=== PATIENT | female | born 1980 | race Caucasian/White ===

== ENCOUNTER 2024-05-05 19:52 | Inpatient (IN) | payer OTHER, MEDICAID ==
[~2024-05-05] VITALS: Ht 154.9 cm; Wt 67.2 kg
[2024-05-05 20:04] VITALS: BP 150/100
[2024-05-05 21:44] LABS: BASO # 0.1 10*3/uL (0.0-0.1); BASO % 0.9 % (0.0-1.0); EOS # 0.2 10*3/uL (0.0-0.4); EOS % 3.8 % (1.0-4.0); HEMATOCRIT 35.5 % (37.0-47.0); LYMPH # 1.5 10*3/uL (1.3-4.4); LYMPH % 25.7 % (27.0-41.0); MEAN CELL VOLUME 88.8 fl (81.0-99.0); MEAN CORPUSCULAR HGB CONC 32.7 g/dl (33.0-37.0); MEAN PLATELET VOLUME 8.5 fl (9.6-12.3); MONO # 0.5 10*3/uL (0.1-1.0); MONO % 8.1 % (3.0-9.0); NEUT # 3.5 10*3/uL (2.3-7.9); NEUT % 60.6 % (47.0-73.0); PLATELET COUNT AUTOMATED 337 10*3/uL (130-400); RED CELL DISTRI WIDTH 16.5 % (0-14.5); WHITE BLOOD COUNT 5.8 10*3/uL (4.8-10.8)
[2024-05-05 21:53] LABS: BILIRUBIN Negative (Negative); BLOOD 1+ (Negative); CLARITY Clear (Clear); COLOR Yellow (Yellow); GLUCOSE Trace (Negative); KETONE Negative (Negative); LEUKO ESTERASE Negative (Negative); NITRITE Negative (Negative); UROBILINOGEN 0.2 E.U./dl (0.0-1.0)
[2024-05-05 22:04] LABS: POTASSIUM 4.1 mmol/L (3.4-5.1)
[2024-05-05 22:10] LABS: BACTERIA 1+; FINE GRANULAR CAST 0-2; WBC 0-2 wbc/hpf (0-5)
[2024-05-05 22:21] LABS: URINE AMPHETAMINES Negative (1000ng/ml); URINE BARBITURATES Negative (200ng/ml); URINE BENZODIAZEPINES Negative (200ng/ml); URINE CANNABINOIDS (THC) Negative (50ng/ml); URINE COCAINE Positive (300ng/ml); URINE METHADONE Negative (300ng/ml); URINE OPIATES Negative (300ng/ml); URINE PHENCYCLIDINE Negative (25ng/ml)
[2024-05-05] MEDS ORDERED: LORazepam 2 MG/ML VIAL IV ONE (22:40)
[2024-05-05] MEDS ORDERED: QUETIAPINE FUM100 M2 PO (23:02)
[2024-05-05] MEDS ORDERED: ASPIRIN ADULT L81 M1 PO (23:03)
[2024-05-05] MEDS ORDERED: ARTHRITIS PAIN50 GM TP (23:04)
[2024-05-05] MEDS ORDERED: FAMOTIDINE40 MG PO (23:05)
[2024-05-05] MEDS ORDERED: FERROUS SULFAT324 M2 PO (23:05)
[2024-05-05] MEDS ORDERED: NEURONTIN400 MG PO (23:06)
[2024-05-05] MEDS ORDERED: LAMICTAL100 MG PO (23:07)
[2024-05-05] MEDS ORDERED: MUCINEX ER600 MG PO (23:07)
[2024-05-05] MEDS ORDERED: LAMICTAL25 MG PO (23:08)
[2024-05-05] MEDS ORDERED: KEPPRA250 MG PO (23:08)
[2024-05-05] MEDS ORDERED: LEVOXYL100 MCG PO (23:09)
[2024-05-05] MEDS ORDERED: MELATONIN3 MG PO (23:10)
[2024-05-05] MEDS ORDERED: PROBIOTIC250 MG PO (23:12)
[2024-05-05] MEDS ORDERED: PLAVIX75 M1 PO (23:12)
[2024-05-05] MEDS ORDERED: SENNA8.6 MG PO (23:13)
[2024-05-05] MEDS ORDERED: SILVADENE,SSD C50 GM T (23:14)
[2024-05-05] MEDS ORDERED: SODIUM CHLORIDE 0.9% 1,000 ML IV ONE (23:35)
[2024-05-06 00:33] VITALS: BP 164/97
[2024-05-06] MEDS ORDERED: BISACODYL 10 MG SUPP R PRN (01:50)
[2024-05-06] MEDS ORDERED: ACETAMINOPHEN 650 MG SUPP R PRN (01:50)
[2024-05-06] MEDS ORDERED: BISACODYL 5 MG TAB PO PRN (01:50)
[2024-05-06] MEDS ORDERED: Magnesium Hydroxide 30 ML UDC PO PRN (01:50)
[2024-05-06] MEDS ORDERED: ACETAMINOPHEN 325 MG TAB PO PRN (01:50)
[2024-05-06] MEDS ORDERED: Albuterol Sulf/Ipratropium 3 ML VIAL NEB PRN (02:30)
[2024-05-06] MEDS ORDERED: hydrOXYzine pamoate 25 MG CAP PO ONE (03:00)
[2024-05-06] MEDS ORDERED: METOPROLOL SUCC25 M2 PO (03:05)
[2024-05-06] MEDS ORDERED: QUETIAPINE FUMARATE 100 MG TAB PO SCH (03:05)
[2024-05-06] MEDS ORDERED: HYDROXYZINE HYD50 MG PO (03:05)
[2024-05-06] MEDS ORDERED: PRISTIQ ER25 MG PO (03:08)
[2024-05-06 04:24] VITALS: BP 145/88
[2024-05-06] MEDS ORDERED: Ondansetron Hydrochloride 4 MG TAB PO PRN (06:30)
[2024-05-06 07:00] LABS: BASO % 0.7 % (0.0-1.0); EOS # 0.3 10*3/uL (0.0-0.4); EOS % 4.4 % (1.0-4.0); HEMATOCRIT 29.7 % (37.0-47.0); LYMPH # 1.9 10*3/uL (1.3-4.4); LYMPH % 30.2 % (27.0-41.0); MEAN CELL VOLUME 88.4 fl (81.0-99.0); MEAN CORPUSCULAR HGB 28.6 pg (27.0-31.0); MEAN CORPUSCULAR HGB CONC 32.3 g/dl (33.0-37.0); MEAN PLATELET VOLUME 8.5 fl (9.6-12.3); MONO # 0.6 10*3/uL (0.1-1.0); MONO % 10.4 % (3.0-9.0); NEUT # 3.3 10*3/uL (2.3-7.9); NEUT % 53.5 % (47.0-73.0); PLATELET COUNT AUTOMATED 271 10*3/uL (130-400); RED BLOOD COUNT 3.36 10*6/uL (4.10-5.10); RED CELL DISTRI WIDTH 16.3 % (0-14.5); WHITE BLOOD COUNT 6.1 10*3/uL (4.8-10.8)
[2024-05-06 07:25] LABS: FREE T4 0.92 ng/dl (0.89-1.76); POTASSIUM 4.1 mmol/L (3.4-5.1); TOTAL PROTEIN 5.8 gm/dL (6.0-8.0)
[2024-05-06] MEDS ORDERED: DEXTROSE 10 % IN WATER 250 ML IV PRN (07:25)
[2024-05-06] MEDS ORDERED: INSULIN LISPRO 1 UNIT/0.01 ML SQ SCH (07:30)
[2024-05-06 08:00] VITALS: BP 146/77
[2024-05-06] MEDS ORDERED: Levothyroxine Sodium 100 MCG TAB PO SCH (10:00)
[2024-05-06] MEDS ORDERED: Enoxaparin Sodium 40 MG/0.4 ML SYR SC SCH (10:00)
[2024-05-06] MEDS ORDERED: Clopidogrel Hydrogen Sulfate 75 MG TAB PO SCH (10:00)
[2024-05-06] MEDS ORDERED: ASPIRIN, CHEWABLE 81 MG TAB PO SCH (10:00)
[2024-05-06] MEDS ORDERED: LEVETIRACETAM 250 MG TAB PO SCH (10:00)
[2024-05-06] MEDS ORDERED: METOPROLOL SUCCINATE XR 25 MG TAB PO SCH (10:00)
[2024-05-06] MEDS ORDERED: Desvenlafaxine Succinate 50 MG TER PO SCH (10:00)
[2024-05-06] MEDS ORDERED: GABAPENTIN 400 MG CAP PO SCH (10:00)
[2024-05-06 12:00] VITALS: BP 126/72
[2024-05-06] MEDS ORDERED: MUPIROCIN 15 GM TUBE T SCH (14:00)
[2024-05-06] MEDS ORDERED: LORazepam 1 MG TAB PO SCH (14:00)
[2024-05-06 16:38] VITALS: BP 113/71
[2024-05-06 20:07] VITALS: BP 126/78
[2024-05-06] MEDS ORDERED: LAMOTRIGINE 25 MG TAB PO SCH (22:00)
[2024-05-06] MEDS ORDERED: FAMOTIDINE 20 MG TAB PO SCH (22:00)
[2024-05-07] VITALS (7 sets, daily range): BP systolic 111–159; BP diastolic 67–90
[2024-05-07 07:12] LABS: BASO # 0.1 10*3/uL (0.0-0.1); BASO % 0.8 % (0.0-1.0); EOS # 0.4 10*3/uL (0.0-0.4); EOS % 6.5 % (1.0-4.0); HEMATOCRIT 32.7 % (37.0-47.0); LYMPH # 2.1 10*3/uL (1.3-4.4); LYMPH % 32.9 % (27.0-41.0); MEAN CELL VOLUME 90.6 fl (81.0-99.0); MEAN CORPUSCULAR HGB 28.8 pg (27.0-31.0); MEAN CORPUSCULAR HGB CONC 31.8 g/dl (33.0-37.0); MEAN PLATELET VOLUME 8.4 fl (9.6-12.3); MONO # 0.7 10*3/uL (0.1-1.0); MONO % 10.8 % (3.0-9.0); NEUT # 3.1 10*3/uL (2.3-7.9); NEUT % 48.5 % (47.0-73.0); PLATELET COUNT AUTOMATED 292 10*3/uL (130-400); RED BLOOD COUNT 3.61 10*6/uL (4.10-5.10); RED CELL DISTRI WIDTH 16.4 % (0-14.5); WHITE BLOOD COUNT 6.3 10*3/uL (4.8-10.8)
[2024-05-07 07:43] LABS: POTASSIUM 4.6 mmol/L (3.4-5.1)
[2024-05-07] MEDS ORDERED: Vitamin D 1,000 IU TAB (25 MCG) PO SCH (10:00)
[2024-05-07] MEDS ORDERED: SODIUM CHLORIDE 0.9% 1,000 ML IV ONE (12:30)
[2024-05-07] MEDS ORDERED: LORazepam 1 MG TAB PO SCH (16:00)
[2024-05-07] MEDS ORDERED: GABAPENTIN 400 MG CAP PO SCH (22:00)
[2024-05-08] VITALS: BP 105/57
[2024-05-08] MEDS ORDERED: LORazepam 1 MG TAB PO PRN
[2024-05-08 06:44] LABS: BASO # 0.1 10*3/uL (0.0-0.1); BASO % 0.8 % (0.0-1.0); EOS # 0.4 10*3/uL (0.0-0.4); EOS % 6.7 % (1.0-4.0); HEMATOCRIT 29.5 % (37.0-47.0); LYMPH % 32.5 % (27.0-41.0); MEAN CELL VOLUME 89.1 fl (81.0-99.0); MEAN CORPUSCULAR HGB CONC 32.5 g/dl (33.0-37.0); MEAN PLATELET VOLUME 9.4 fl (9.6-12.3); MONO # 0.6 10*3/uL (0.1-1.0); MONO % 9.7 % (3.0-9.0); NEUT % 49.5 % (47.0-73.0); PLATELET COUNT AUTOMATED 296 10*3/uL (130-400); RED BLOOD COUNT 3.31 10*6/uL (4.10-5.10)
[2024-05-08 06:51] LABS: BUN 25 mg/dl (9-23); CHLORIDE 107 mmol/L (98-107); POTASSIUM 4.6 mmol/L (3.4-5.1)
[2024-05-08 08:00] VITALS: BP 144/91
[2024-05-08] MEDS ORDERED: FOAM BANDAGE 5X5 T ONE (10:46)
[2024-05-08 12:00] VITALS: BP 154/94
[2024-05-08 16:00] VITALS: BP 156/86
[2024-05-08] MEDS ORDERED: FOAM BANDAGE HEEL T ONE (19:54)
[2024-05-08 20:00] VITALS: BP 146/78
[2024-05-08 21:20] LABS: POTASSIUM 6.2 mmol/L (3.4-5.1)
[2024-05-08] MEDS ORDERED: INSULIN LISPRO 1 UNIT/0.01 ML SQ ONE (21:25)
[2024-05-08] MEDS ORDERED: SODIUM CHLORIDE 0.9% 1,000 ML IV ONE (21:25)
[2024-05-08] MEDS ORDERED: CALCIUM GLUC IN NACL, ISO-OSM 100 ML IV ONE (22:10)
[2024-05-09] VITALS: BP 164/86
[2024-05-09] MEDS ORDERED: Insulin Lispro, Recombinant 1 UNIT/0.01 ML UN SC ONE (00:35)
[2024-05-09] MEDS ORDERED: INSULIN LISPRO 1 UNIT/0.01 ML SQ ONE (00:50)
[2024-05-09 02:31] LABS: POTASSIUM 4.7 mmol/L (3.4-5.1)
[2024-05-09 06:45] LABS: BASO % 0.8 % (0.0-1.0); EOS # 0.3 10*3/uL (0.0-0.4); EOS % 5.7 % (1.0-4.0); HEMATOCRIT 28.7 % (37.0-47.0); LYMPH # 1.6 10*3/uL (1.3-4.4); LYMPH % 30.6 % (27.0-41.0); MEAN CELL VOLUME 88.6 fl (81.0-99.0); MEAN CORPUSCULAR HGB CONC 32.8 g/dl (33.0-37.0); MEAN PLATELET VOLUME 8.9 fl (9.6-12.3); MONO # 0.6 10*3/uL (0.1-1.0); MONO % 12.6 % (3.0-9.0); NEUT # 2.5 10*3/uL (2.3-7.9); NEUT % 49.3 % (47.0-73.0); PLATELET COUNT AUTOMATED 273 10*3/uL (130-400); RED BLOOD COUNT 3.24 10*6/uL (4.10-5.10); RED CELL DISTRI WIDTH 15.7 % (0-14.5); WHITE BLOOD COUNT 5.1 10*3/uL (4.8-10.8)
[2024-05-09 07:10] LABS: POTASSIUM 4.9 mmol/L (3.4-5.1)
[2024-05-09 08:00] VITALS: BP 135/72
[2024-05-09 12:00] VITALS: BP 167/79
[2024-05-09] MEDS ORDERED: SODIUM CHLORIDE 0.9% 1,000 ML IV ONE (12:15)
[2024-05-09 12:19] LABS: POTASSIUM 5.8 mmol/L (3.4-5.1)
[2024-05-09] MEDS ORDERED: INSULIN REGULAR, HUMAN 1 UNIT/0.01 ML IV ONE (12:45)
[2024-05-09 15:37] VITALS: BP 153/76
[2024-05-09] MEDS ORDERED: INSULIN LISPRO 1 UNIT/0.01 ML SQ SCH (16:30)
[2024-05-09 19:36] LABS: POTASSIUM 4.4 mmol/L (3.4-5.1)
[2024-05-09 20:00] VITALS: BP 118/67
[2024-05-09] MEDS ORDERED: Insulin Glargine, Recombinan 1 UNIT/0.01 ML SC SCH (22:00)
[2024-05-10] VITALS: BP 144/87
[2024-05-10 06:02] LABS: POTASSIUM 5.3 mmol/L (3.4-5.1)
[2024-05-10 06:12] LABS: BASO # 0.1 10*3/uL (0.0-0.1); BASO % 1.2 % (0.0-1.0); EOS # 0.4 10*3/uL (0.0-0.4); EOS % 6.2 % (1.0-4.0); HEMATOCRIT 30.5 % (37.0-47.0); LYMPH # 1.7 10*3/uL (1.3-4.4); LYMPH % 29.2 % (27.0-41.0); MEAN CELL VOLUME 85.7 fl (81.0-99.0); MEAN CORPUSCULAR HGB 29.2 pg (27.0-31.0); MEAN CORPUSCULAR HGB CONC 34.1 g/dl (33.0-37.0); MEAN PLATELET VOLUME 9.3 fl (9.6-12.3); MONO # 0.4 10*3/uL (0.1-1.0); MONO % 7.6 % (3.0-9.0); NEUT # 3.2 10*3/uL (2.3-7.9); NEUT % 55.1 % (47.0-73.0); PLATELET COUNT AUTOMATED 288 10*3/uL (130-400); RED BLOOD COUNT 3.56 10*6/uL (4.10-5.10); RED CELL DISTRI WIDTH 15.1 % (0-14.5); WHITE BLOOD COUNT 5.8 10*3/uL (4.8-10.8)
[2024-05-10 08:00] VITALS: BP 111/67
[2024-05-10 14:15] LABS: POTASSIUM 4.9 mmol/L (3.4-5.1)
[2024-05-10] MEDS ORDERED: D3-200050 MCG PO (14:24)
[2024-05-10 16:00] VITALS: BP 130/67
[2024-05-10] MEDS ORDERED: FOAM BANDAGE 5X5 T ONE (17:43)
== END 2024-05-10 18:00 | DRG 682 ==
LOC: ED 19:52 → EDHOLD 05-06 00:53 → 4E 05-06 00:53
PROVIDERS: Emergency Medicine; Internal Medicine; Student in an Organized Health Care Education/Training Program; ADMIT Internal Medicine; ATTEND Internal Medicine
PROC: 0HBMXZZ Excision of Right Foot Skin, External Approach (ICD-10-PCS; principal; 2024-05-07)
DX: N17.0 Acute kidney failure with tubular necrosis (principal); E43 Unspecified severe protein-calorie malnutrition; L02.611 Cutaneous abscess of right foot; E10.610 Type 1 diabetes mellitus with diabetic neuropathic arthropathy; D64.9 Anemia, unspecified; F14.122 Cocaine abuse with intoxication with perceptual disturbance; F41.9 Anxiety disorder, unspecified; F32.A Depression, unspecified; F60.9 Personality disorder, unspecified; N80.9 Endometriosis, unspecified; F17.200 Nicotine dependence, unspecified, uncomplicated; E10.65 Type 1 diabetes mellitus with hyperglycemia; R82.71 Bacteriuria; S91.301A Unspecified open wound, right foot, initial encounter; N06.9 Isolated proteinuria with unspecified morphologic lesion; E55.9 Vitamin D deficiency, unspecified; S91.102A Unspecified open wound of left great toe without damage to nail, initial encounter; S90.31XA Contusion of right foot, initial encounter; I10 Essential (primary) hypertension; Z91.040 Latex allergy status; Z88.8 Allergy status to other drugs, medicaments and biological substances; Z91.09 Other allergy status, other than to drugs and biological substances; Z79.899 Other long term (current) drug therapy; Z68.28 Body mass index [BMI] 28.0-28.9, adult; Z79.01 Long term (current) use of anticoagulants; Z79.2 Long term (current) use of antibiotics; I25.2 Old myocardial infarction; Z98.890 Other specified postprocedural states; Z98.891 History of uterine scar from previous surgery; Z90.49 Acquired absence of other specified parts of digestive tract; X58.XXXA Exposure to other specified factors, initial encounter; Y93.89 Activity, other specified; Y92.89 Other specified places as the place of occurrence of the external cause; Y99.8 Other external cause status